=== PATIENT | male | born 1970 | race Caucasian/White ===

== ENCOUNTER 2017-04-30 11:47 | Emergency (ER) | payer SELFPAY ==
[~2017-04-30] VITALS: Ht 180.3 cm; Wt 91.2 kg
[~2017-04-30 11:47] MED LIST: ALL180 PO; CLR10 PO
[2017-04-30 11:49] VITALS: BP 144/86; PULSE 77; TEMP 37; O2SAT 99; Ht 180.3 cm; Wt 91.2 kg
[2017-04-30] MEDS ORDERED: IBUP-1050 PO (12:00)
--- NOTE | 2017-04-30 12:01 | EMERGENCY ROOM VISIT NOTE ---
ED Visit Note First contact with patient: 11:52 CHIEF COMPLAINT: Right lower dental pain 2 days HISTORY OF PRESENT ILLNESS: Patient is a 47-year-old white male who presents to emergency department for evaluation of right lower dental pain. The bottom molars have been carious for some time, the patient knows that he needs to have the teeth pulled. They became increasingly painful in the last 1-2 days, and he woke up with swelling along the jaw line. He notes a foul taste in his mouth. Pain is tolerable. He cannot get in with a dentist for about a week and a half. He denies fever. REVIEW OF SYSTEMS: Review of systems as per HPI. All other systems reviewed were negative. At least 6 systems reviewed. PMH: Electronic medical records are reviewed and summarized as above/below. See Problem List. SOCIAL HISTORY: Patient lives at home. Smoker. PHYSICAL EXAM: Vital Signs: Reviewed Nurse's notes. CONSTITUTIONAL: Patient is a well-appearing 47-year-old white male who is awake and alert and in no acute distress. Vital signs are stable. EARS: Tympanic membranes intact, not inflamed, have normal contour. External canals clear. MOUTH: Overall the patient has poor dentition. The right lower rear molars are grossly carious and decayed. They are tender to percussion. There is slight swelling along the gumline although no focal abscess. Mucous membranes moist, no lesions, tongue and gums appear normal. THROAT: No pharyngeal injection, exudates, or tonsillar hypertrophy. Airway is patent. No trismus noted. FACE: Slight fullness of the right lower jaw line. No cellulitic changes. NECK: No lymphadenopathy. ED course: The patient was seen and assessed as above. He has evidence for a dental infection and was placed on penicillin. He declined narcotic analgesia. He does not have any evidence for drainable abscess, no facial cellulitis or evidence of Eloy's angina. He will be placed on Pen-Vee K. He was given his first dose in the emergency department. Patient was reviewed in the [facility] Health Prescription Drug Monitoring Program, and there were no red flags noted. Medication reconciliation: I attest that I have personally reviewed the patient' s current medication list. Blood pressure screening: Patient was found to have a slightly elevated blood pressure due to circumstances. I do not believe that the patient requires hypertension monitoring. Current/Historical Medications Scheduled Penicillin V Potassium (Veetids), 500 MG PO QID Scheduled PRN Ibuprofen (Advil), 400 MG PO DAILY PRN for Pain or Fever Allergies Coded Allergies: Lincomycin (Unverified Allergy, Mild, 04/30/17) Vital Signs Date Time Temp Pulse Resp B/P (MAP) Pulse Ox O2 Delivery O2 Flow Rate FiO2 04/30/17 11:49 37.0 77 18 144/86 99 Room Air Medications Administered Medications (Trade) Dose Ordered Sig/Mark Route Start Time Stop Time Status Last Admin Dose Admin Penicillin V Potassium (Veetids Tab) 500 mg ONE ONCE PO 04/30/17 12:15 04/30/17 12:16 DC 04/30/17 12:10 500 MG Departure Information Impression Primary Impression: Dental abscess Prescriptions Penicillin V Potassium (VEETIDS) 500 Mg Tab 500 MG PO QID, #40 TAB Prov: Gillian Moreira PA 04/30/17 Referrals No Doctor, Assigned (PCP) Patient Instructions My [facility] Additional Instructions Penicillin 500mg: Take one pill four times daily for 10 days for your dental infection. All antibiotics can cause diarrhea. If this occurs and you feel worse or it does not resolve in 1-2 days follow up with your doctor or return to the Emergency Department as this could be signs of serious underlying problems. Any medication can cause an allergic reaction, stop the pills immediately and return to the ER for rash, hives, breathing difficulties, or swelling. Ibuprofen(Motrin, Advil) may be used for fever or pain. Use 600mg every six hours as needed. Take with food. Avoid using more than 2400mg in a 24 hour period. Do not use 2400mg per day for more than three consecutive days without physician direction. Prolonged inappropriate use can lead to stomach upset or ulcers. (AND/OR) Acetaminophen(Tylenol) may be used for fever or pain. Use 1000mg every six hours as needed. Avoid using more than 4000mg in a 24 hour period. Saltwater gargles after meals and before bedtime. Soft foods. Orajel/Anbesol/clove oil as needed for discomfort. Followup with your dentist for definitive management. You may also follow up with your primary care physician for pain/care management until you can be seen by your dentist.
[2017-04-30] MEDS ORDERED: PENI500T2 PO (12:02)
[2017-04-30] MEDS ORDERED: PENICILLIN V POTASSIUM 250 MG TAB PO ONE (12:15)
== END 2017-04-30 12:13 | disposition home or self-care (01) ==
LOC: C.EDB 11:48 → C.EDD 12:13
DX: K04.7 Periapical abscess without sinus (principal); F17.210 Nicotine dependence, cigarettes, uncomplicated